=== PATIENT | female | born 1980 | race Hispanic/Latino ===

== ENCOUNTER 2017-12-14 14:09 | Inpatient (IN) | payer MEDICAID, OTHER, SELFPAY ==
[~2017-12-14 14:09] MED LIST: Dexamethasone 20 MG/5 ML VIAL ONE; Ketorolac Tromethamine 30 MG/ML VIAL ONE; Ondansetron HCl/PF 4 MG/2 ML Vial ONE; PHENYLEPHRINE-NS 100 MCG/ML 10 ML SYRINGE ONE; diphenhydrAMINE 50 MG/ML VIAL ONE
[2017-12-14 15:03] VITALS: BMI 40.6
[2017-12-14] MEDS: Lactated Ringer's 1,000 ML IV SCH ×2 (15:25→16:25)
[2017-12-14] MEDS ORDERED: Ondansetron HCl/PF 4 MG/2 ML Vial IVP PRN ×4 (16:06→22:41)
[2017-12-14] MEDS ORDERED: CEFAZOLIN/Water 2 GM/20 ML SYRINGE SLOW IVP SCH (16:15)
[2017-12-14] MEDS ORDERED: Bicitra 30 ML UDCUP PO SCH (16:15)
[2017-12-14 16:25] LABS: Hemoglobin 11.8 g/dL (12.0-16.0); Mean Corpuscular HGB CONC 34.5 g/dL (32.0-36.0); Mean Corpuscular Hemoglobin 30.8 pg (27.0-31.0); Mean Corpuscular Volume 89.3 fL (78.0-98.0); Platelet Count 228 thou/uL (130-400); RBC Distribution Width 13.2 % (11.5-14.5); Red Blood Cell (RBC) Count 3.85 mill/uL (4.20-5.40); White Blood Cell (WBC) Count 8.7 thou/uL (4.8-10.8)
[2017-12-14 17:12] LABS: HBSAg Index 0.18 S/CO (0-0.99); Hep B Surf Ag Non-Reactive S/CO (NonReactive)
[2017-12-14 17:14] LABS: Syphilis Antibody Nonreactive (Nonreactive); Syphilis Antibody Index 0.04 S/CO (<1.00 Non-Reactive)
[2017-12-14] MEDS ORDERED: Morphine PF 1 MG/ML SYR ONE (18:51)
[2017-12-14] MEDS ORDERED: Bupivacaine 0.75% W/DEXTROSE 8.25% 2 ML AMP ONE (18:52)
[2017-12-14] MEDS ORDERED: Ondansetron HCl/PF 4 MG/2 ML Vial ONE (18:52)
[2017-12-14] MEDS ORDERED: diphenhydrAMINE 50 MG/ML VIAL ONE (18:52)
[2017-12-14] MEDS ORDERED: PHENYLEPHRINE-NS 100 MCG/ML 10 ML SYRINGE ONE (18:52)
[2017-12-14] MEDS ORDERED: Oxytocin 10 UNITS/ML VIAL ONE (18:52)
[2017-12-14] MEDS ORDERED: Ketorolac Tromethamine 30 MG/ML VIAL ONE (18:52)
[2017-12-14] MEDS ORDERED: Lidocaine 2% 10 ML INJ ONE (18:52)
[2017-12-14] MEDS ORDERED: Dexamethasone 4 mg/ml Vial ONE (18:52)
[2017-12-14] MEDS ORDERED: Ketorolac Tromethamine 30 MG/ML VIAL IVP PRN (22:02)
[2017-12-14] MEDS ORDERED: Naloxone HCl 0.4 mg/ml Vial IV PRN (22:02)
[2017-12-14] MEDS ORDERED: Eucerin (Mineral Oil/Petrolatum,White) 30 gm Jar TOP PRN (22:02)
[2017-12-14] MEDS ORDERED: diphenhydrAMINE 50 MG/ML VIAL IVP PRN (22:02)
[2017-12-14] MEDS ORDERED: Meperidine HCl/PF 25 MG/ML VIAL SLOW IVP PRN (22:02)
[2017-12-14] MEDS ORDERED: Promethazine HCl 25 MG/ML VIAL IM PRN (22:02)
[2017-12-14] MEDS ORDERED: Promethazine HCl 25 MG SUPP PR PRN (22:02)
[2017-12-14] MEDS ORDERED: Naloxone HCl 0.4 mg/ml Vial IVP PRN ×2 (22:02)
[2017-12-14] MEDS ORDERED: HYDROmorphone 2 MG/ML VIAL SLOW IVP PRN (22:02)
[2017-12-14] MEDS ORDERED: L&D-Morphine 4 MG/ML VIAL SLOW IVP PRN (22:02)
[2017-12-14] MEDS ORDERED: Communication Order-Pharmacy FS SCH (22:15)
[2017-12-14] MEDS ORDERED: Meperidine HCl/PF 25 MG/ML VIAL IM PRN (22:41)
[2017-12-14] MEDS ORDERED: diphenhydrAMINE 25 MG CAP PO PRN (22:41)
[2017-12-14] MEDS ORDERED: NS / Oxytocin 40 units/1000ml 1,000 ML IV SCH (22:41)
[2017-12-14] MEDS ORDERED: Lanolin Ointment 7 GM TUBE TOP PRN (22:41)
[2017-12-14] MEDS ORDERED: Bisacodyl 10 MG SUPP PR PRN (22:41)
[2017-12-14] MEDS ORDERED: Docusate Calcium (SURFAK) 240 MG CAP PO SCH (23:00)
[2017-12-15] MEDS ORDERED: Ibuprofen 800 MG TAB PO SCH (06:00)
[2017-12-15 06:04] LABS: Hemoglobin 10.6 g/dL (12.0-16.0); Mean Corpuscular HGB CONC 33.9 g/dL (32.0-36.0); Mean Corpuscular Hemoglobin 30.2 pg (27.0-31.0); Mean Corpuscular Volume 88.9 fL (78.0-98.0); Mean Platelet Volume 8.5 fL (7.4-10.4); Platelet Count 216 thou/uL (130-400); Red Blood Cell (RBC) Count 3.52 mill/uL (4.20-5.40); White Blood Cell (WBC) Count 12.5 thou/uL (4.8-10.8)
[2017-12-15] MEDS: Prenatal Vitamin 1 TAB PO SCH (08:43)
[2017-12-15] MEDS: Docusate Calcium (SURFAK) 240 MG CAP PO SCH ×2 (08:43→20:55)
[2017-12-15] MEDS ORDERED: Adacel (T-DAP) 0.5 ML VIAL IM ONE (09:00)
[2017-12-15] MEDS: Ferrous Sulfate 325 MG TAB PO SCH ×2 (12:12→17:58)
[2017-12-15] MEDS: HYDROcodone/Acetaminophen 5/325 mg Tablet PO PRN (13:59)
--- NOTE | 2017-12-15 18:56 | OP ---
DATE OF PROCEDURE: 12/14/2017 PREOPERATIVE DIAGNOSES: 1. A 39-week . 2. Advanced maternal age. 3. Previous section x3. POSTOPERATIVE DIAGNOSES: 1. A 39-week . 2. Advanced maternal age. 3. Previous section x3. PROCEDURE PERFORMED: Repeat low cervical transverse section. SURGEON: Mio Ortega M.D. BIOLOGICAL SCIENCES INSTRUCTOR: Dr. Holder. ANESTHESIA: Spinal. DESCRIPTION OF EVENTS: After informed consent was obtained from the patient, she was taken to the op erating room where spinal anesthesia was administered. She was prepped and draped in the usual steri le fashion. A Pfannenstiel incision was created over her prior incision and carried down to the fasc ia. Fascia was nicked to the midline and the fascial incision was extended transversely with Baca sc issors. The superior fascial segment was grasped with Kochers and elevated and the underlying rectus muscles were dissected away, first bluntly and then sharply. This was repeated with the inferior fa scial segment. The rectus muscles were divided in the midline with the Baca scissors. Peritoneum wa s entered simultaneously. Bladder blade was inserted. The vesicouterine serosa was grasped with a h emostat and elevated, and a bladder flap was created with Metzenbaum scissors and blunt dissection. The bladder blade was then reinserted. The uterus was entered in a low transverse fashion with a gómez an #10 scalpel blade. Clear amniotic fluid was encountered. vertex delivered onto the operati ve field, followed by the remainder of the infant, which was delivered uneventfully. The oropharynx and nares were bulb suctioned. Cord clamping was delayed 30 seconds. Cord was then clamped and cut and a vigorous male was handed off to the staff in attendance. Cord blood was obtain ed. The placenta was manually extracted. The uterus was exteriorized and freed of clots and debris. The uterus was repaired with a running locking suture of 0 Vicryl in a single full-thickness layer, followed by a series of interrupted [id number] sutures of 0 Vicryl along the incision line for hemostasis, which was observed. The abdomen was copiously irrigated with saline. Seprafilm was appl ied to repaired uterine incision and the anterior uterine fundus. The uterus was returned to the abd omen. Hemostasis was again observed. The peritoneum was closed with a running suture of 3-0 Vicryl. The fascia was repaired with a running suture of 0 PDS. Subcutaneous bleeders were cauterized with the Bovie. Three interrupted sutures of 3-0 Vicryl were placed in the subdermal layer to reapproxim ate the skin which was closed with skin hever. Sponge, needle, and instrument counts were correct x4. She tolerated the procedure well and suffered no acute complications. She was taken to recovery in stable condition and the infant to the nursery in stable condition.
[2017-12-15] MEDS: Ibuprofen 800 MG TAB PO SCH (20:55)
[2017-12-15] MEDS: Simethicone Chewable 80 MG TAB PO PRN (20:55)
[2017-12-16] MEDS: HYDROcodone/Acetaminophen 5/325 mg Tablet PO PRN ×3 (00:28→17:37)
[2017-12-16] MEDS: Ibuprofen 800 MG TAB PO SCH ×3 (04:43→20:32)
[2017-12-16] MEDS ORDERED: Ibuprofen 800 MG TAB PO SCH (06:00)
[2017-12-16] MEDS: Ferrous Sulfate 325 MG TAB PO SCH ×2 (07:44→17:38)
[2017-12-16] MEDS: Prenatal Vitamin 1 TAB PO SCH (08:35)
[2017-12-16] MEDS: Docusate Calcium (SURFAK) 240 MG CAP PO SCH ×2 (08:36→20:32)
[2017-12-17] MEDS: Ibuprofen 800 MG TAB PO SCH ×2 (03:50→12:04)
[2017-12-17] MEDS: Simethicone Chewable 80 MG TAB PO PRN (06:11)
[2017-12-17 07:55] VITALS: BP 122/70; TEMP 99.2
[2017-12-17] MEDS: Ferrous Sulfate 325 MG TAB PO SCH (08:38)
[2017-12-17] MEDS: Docusate Calcium (SURFAK) 240 MG CAP PO SCH (08:41)
[2017-12-17] MEDS: Prenatal Vitamin 1 TAB PO SCH (08:41)
[2017-12-17] MEDS: HYDROcodone/Acetaminophen 5/325 mg Tablet PO PRN (09:58)
== END 2017-12-17 14:00 | disposition home or self-care (01) | DRG 788 ==
LOC: L&D 14:09 → 3SW 22:35
PROVIDERS: ADMIT Family Medicine; ATTEND Family Medicine
PROC: 10D00Z1 Extraction of Products of Conception, Low, Open Approach (ICD-10-PCS; principal; 2017-12-14)
PROC: 4A0HXCZ Measurement of Products of Conception, Cardiac Rate, External Approach (ICD-10-PCS; 2017-12-14)
PROC: 3E0234Z Introduction of Serum, Toxoid and Vaccine into Muscle, Percutaneous Approach (ICD-10-PCS; 2017-12-17)
DX: O34.211 Maternal care for low transverse scar from previous cesarean delivery (principal); Z3A.39 39 weeks gestation of pregnancy; Z37.0 Single live birth; Z23 Encounter for immunization
CPT/HCPCS: 36415; 51702; 85027; 86780; 86850; 86900; 86901; 87340; 90471; 90686; G0008; J1100; J1200; J1885; J2274; J2405; J2590; J3490

== ENCOUNTER 2018-07-11 00:03 | Emergency (ER) | payer BC, MEDICAID ==
[2018-07-11 00:53] LABS: #Eosinphils 0.2 thou/uL (0.0-0.7); #Lymphocytes 1.6 thou/uL (1.20-3.40); #Monocytes 0.4 thou/uL (0.11-0.59); #Neutrophils 10.1 thou/uL (1.40-6.50); %Basophils 0.2 % (0.0-1.0); %Eosinophils 1.4 % (0.0-10.0); %Lymphocytes 13.1 % (21.0-51.0); %Neutrophils 82.4 % (42.0-75.0); Hemoglobin 9.2 g/dL (12.0-16.0); Mean Corpuscular HGB CONC 32.3 g/dL (32.0-36.0); Mean Corpuscular Hemoglobin 28.4 pg (27.0-31.0); Mean Corpuscular Volume 87.9 fL (78.0-98.0); Mean Platelet Volume 7.1 fL (7.4-10.4); Platelet Count 401 thou/uL (130-400); RBC Distribution Width 14.2 % (11.5-14.5); Red Blood Cell (RBC) Count 3.25 mill/uL (4.20-5.40); White Blood Cell (WBC) Count 12.3 thou/uL (4.8-10.8)
[2018-07-11 01:15] LABS: ALT (SGPT) 17 U/L (8-55); AST (SGOT) 14 U/L (5-34); Alkaline Phosphatase 82 U/L (40-150); Anion Gap 14 mmol/L (10-20); BUN (Urea Nitrogen) 12 mg/dL (7.0-18.7); Calc. Creatinine Clearance 0 mL/min (70-130); Calcium 9.1 mg/dL (7.8-10.44); Carbon Dioxide 24 mmol/L (22-29); Chloride 106 mmol/L (98-107); Estimated GFR-MDRD 86; Globulin 2.8 g/dL (2.4-3.5); Glucose 119 mg/dL (70-105); Potassium 3.7 mmol/L (3.5-5.1); Protein, Total 6.8 g/dL (6.0-8.3); Sodium 140 mmol/L (136-145)
[2018-07-11 01:19] LABS: Bilirubin Negative (Negative); Blood, Urine Negative (Negative); Clarity CLEAR (Clear); Glucose, Urine (Dipstick) Negative (Negative); Leukocyte Negative (Negative); Nitrite Negative (Negative); Protein, Urine (Dipstick) Negative (Neg-Trace); Specific Gravity, Urine 1.011 (1.002-1.036); Urobilinogen 0.2 mg/dL (0.2-1.0); pH, Urine 6.5 (5.0-9.0)
[2018-07-11] MEDS ORDERED: Ketorolac Tromethamine 30 MG/ML VIAL ONE (02:27)
[2018-07-11] MEDS ORDERED: Clindamycin/D5W 900 mg/50 ml Premix Bag ONE (04:34)
[2018-07-11] MEDS ORDERED: Morphine 4 MG/ML VIAL ONE (04:34)
[2018-07-11] MEDS ORDERED: Ondansetron PF 4 MG/2 ML Vial ONE (04:34)
[2018-07-11] MEDS ORDERED: Piperacillin/Tazobactam 4.5 GM VIAL ONE (04:34)
--- NOTE | 2018-07-11 07:31 | RAD ---
AP view chest. Exam date is 07/11/2018. HISTORY: Fever. AP view chest obtained. The lungs are well aerated. No evidence of active intrathoracic disease seen. No evidence of effusions, pneumonia or pneumothorax seen. IMPRESSION: Unremarkable AP view chest.
--- NOTE | 2018-07-11 08:38 | CT ---
PRELIMINARY REPORT/[facility]/EMERGENCY AFTER HOURS PROCEDURE: EXAM: CT Abdomen and Pelvis With Contrast EXAM DATE/TIME: 07/11/2018 3:07 AM CLINICAL HISTORY: 37 years old, female; Pain and signs and symptoms; Prior surgery; Patient HX: Er 9. PT C/O back pain and fever S/P tummy tuck and liposuction (06/29/18). Surgical history of cholecystectomy, section, right ovary removed, left tubal ligation reversed TECHNIQUE: Imaging protocol: Axial computed tomography images of the abdomen and pelvis with intravenous contrast. Coronal reformatted images were created and reviewed. COMPARISON: No relevant prior studies available. FINDINGS: Lungs: Bibasilar and lingular linear scarring. ABDOMEN: Liver: No mass. Gallbladder and bile ducts: Surgical changes of cholecystectomy. No ductal dilation. Pancreas: No mass or ductal dilation. Spleen: No mass. Adrenals: No mass. Kidneys and ureters: No enhancing mass or hydronephrosis. Stomach and bowel: No obstruction or mucosal thickening. Appendix: Normal appendix. PELVIS: Bladder: Normal. Reproductive: The IUD is within the endocervical canal with prongs in the myometrium. The right ovary is visualized. The left ovary is not visualized. ABDOMEN and PELVIS: Intraperitoneal space: No free air or free fluid. Bones/joints: No suspicious bone lesions. Soft tissues: Surgical changes of recent abdominoplasty and liposuction with anterior subcutaneous tissue and fat stranding and small foci of air. At the level of the superior incision site there is a thin collection of fluid and air measuring approximately 4 x 2 x 1.2 centimeters (sagittal x AP x transverse). Within the subcutaneous tissues of the bilateral lower back, there is fat stranding and illdefined fluid collections, the largest on the right measures approximately 8 x 10 x 2 cm. Vasculature: No abdominal aortic aneurysm. Lymph nodes: No lymphadenopathy. IMPRESSION: 1. Surgical changes of recent abdominoplasty and liposuction. At the anterior superior aspect of the incision line there is a thin air and fluid collection in the subcutaneous tissues that could represe nt a seroma or abscess. 2. Indeterminate inflammation and poorly organized fluid collections in the subcutaneous tissues of the bilateral lower back, measuring up to 8 x 10 x 2 cm. These are suspicious for abscesses. 3. The IUD is within the endocervical canal with horizontal prongs in the myometrium. The Thank you for allowing us to participate in the care of your patient. Dictated and Authenticated by: An Soliman MD 07/11/2018 3:37 AM Central Time ([place] & [place]) FINAL REPORT EMERGENCY AFTER HOURS CONTRAST ENHANCED CT ABDOMEN AND PELVIS: Postsurgical abdominoplasty and liposuction changes seen. Posterior right subcutaneous collection col lection of soft tissue density seen. This may represent a postoperative seroma or hematoma. Surgical consultation is recommended. Small pockets of gas seen in the anterior abdominal subcutaneou s fat. The intraperitoneal organs demonstrate no evidence of definite abnormalities. I concur with the dictation from [facility]. Transcribed Date/Time: 07/11/2018 8:44 AM
[2018-07-11] MEDS ORDERED: Iopamidol 370 76% 100 ML VIAL ONE (16:56)
== END 2018-07-11 08:29 ==
LOC: ERS 00:03
DX: T81.40XA Infection following a procedure, unspecified, initial encounter (principal); L02.211 Cutaneous abscess of abdominal wall; L02.212 Cutaneous abscess of back [any part, except buttock and flank]
CPT/HCPCS: 36415; 71045; 74177; 80053; 81003; 83605; 85025; 87040; 96361; 96365; 96367; 96375; J1885; J2270; J2405; J2543; J3370; J3490; Q9967

== ENCOUNTER 2020-02-10 10:01 | Outpatient (CLI) | payer BC ==
--- NOTE | 2020-02-10 10:37 | RAD ---
EXAM: Chest PA and lateral: HISTORY: Fever COMPARISON: 07/11/2018 FINDINGS: Heart size:Within normal limits. Lungs:Clear of acute process. No confluent pneumonia, overt edema, pleural effusion, or other acute process. IMPRESSION: No significant acute intrathoracic disease.
== END 2020-02-10 10:02 | disposition home or self-care (01) ==
LOC: BICRAD 10:01
PROVIDERS: ATTEND Nurse Practitioner Family
DX: Z01.818 Encounter for other preprocedural examination (principal)
CPT/HCPCS: 71046